=== PATIENT | female | born 1940 | race American Indian/Alaskan Native ===

== ENCOUNTER 2018-06-27 17:58 | Emergency (ER) | payer OTHER, BC ==
--- NOTE | 2018-06-27 18:13 | PDOC ---
Rapid Medical Evaluation Time Seen by Provider: 06/27/18 18:10 Medical Evaluation: 06/27/18 18:10 I have performed a brief in-person evaluation of this patient. The patient presents with a chief complaint of: Head injury s/p fall. While dancing tonight, accidentally got knocked over per pt. C/o mild MCCLENDON. No loc, dizziness, visual changes, n/v. No cp or dizziness prior to fall. H/o HTN, HLD, hypothyroid, s/p surgery for L breast ca remotely Pertinent physical exam findings: well jose female, stable at triage I have ordered the following:CT head The patient will proceed to the ED for further evaluation. 06/27/18 18:14 Discharge Disposition - Diagnosis Head injury Qualifiers: Encounter type: initial encounter Qualified Code(s): S09.90XA - Unspecified injury of head, initial encounter - Referrals - Patient Instructions - Post Discharge Activity
[2018-06-27 18:30] VITALS: BP 164/82; PULSE 67; TEMP 97.8; BMI 19.8
--- NOTE | 2018-06-27 18:40 | PDOC ---
History of Present Illness - General Chief Complaint: Injury Stated Complaint: FALL Time Seen by Provider: 06/27/18 18:10 History Source: Patient - History of Present Illness Initial Comments: 06/27/18 18:48 78 year old female reported that while she was in a dance class she tripped and fell to the left side hit head and left hand. denies pain to left hand full rom. has a hematoma to left parietal area. patient has a history of hypertension. currently on aspirin everyday Past History - Past Medical History Allergies/Adverse Reactions: Allergies Allergy/AdvReac Type Severity Reaction Status Date / Time CARL Inhibitors Allergy Intermediate Itching Verified 06/27/18 18:11 ampicillin Allergy Intermediate Itching Verified 06/27/18 18:11 pneumococcal vaccine Allergy Intermediate Rash Verified 06/27/18 18:11 [From Prevnar 13 (PF)] Home Medications: Ambulatory Orders Unobtainable 06/27/18 COPD: No HTN: Yes Hypercholesterolemia: Yes Thyroid Disease: Yes - Suicide/Smoking/Psychosocial Hx Smoking History: Never smoked Review of Systems - Review of Systems Able to Perform ROS?: Yes Is the patient limited Welsh proficient: No Neurological: Yes: Other (head injury) *Physical Exam - Vital Signs Last Vital Signs Temp Pulse Resp BP Pulse Ox 97.8 F 67 19 164/82 96 06/27/18 18:12 06/27/18 18:12 06/27/18 18:12 06/27/18 18:12 06/27/18 18:12 - Physical Exam General Appearance: Yes: Appropriately Dressed HEENT: positive: Other (hematoma to right parietal area, bruising and surrounding petechiae to left arist and arm) Neurologic: positive: Fully Oriented, Alert, Normal Mood/Affect Moderate Sedation - Procedure Monitoring Vital Signs: Procedure Monitoring Vital Signs Temperature 97.8 F 06/27/18 18:12 Pulse Rate 67 06/27/18 18:12 Respiratory Rate 19 06/27/18 18:12 Blood Pressure 164/82 06/27/18 18:12 O2 Sat by Pulse Oximetry (%) 96 06/27/18 18:12 *DC/Admit/Observation/Transfer Diagnosis at time of Disposition: Head injury Qualifiers: Encounter type: initial encounter Qualified Code(s): S09.90XA - Unspecified injury of head, initial encounter - Discharge Dispostion Disposition: HOME - Referrals Referrals: Domingo Tolbert [Primary Care Provider] - - Patient Instructions Printed Discharge Instructions: Postconcussion Syndrome, DI for Closed Head Injury Additional Instructions: rest and relax as much as possible. you may apply ice to the area follow up with your doctor - Post Discharge Activity
== END 2018-06-27 19:24 | disposition home or self-care (01) ==
LOC: JER 17:58
DX: S00.03XA Contusion of scalp, initial encounter (principal); W18.39XA Other fall on same level, initial encounter; Y93.41 Activity, dancing; Y92.252 Music hall as the place of occurrence of the external cause; Y99.8 Other external cause status; I10 Essential (primary) hypertension; E78.5 Hyperlipidemia, unspecified; E03.9 Hypothyroidism, unspecified; Z85.3 Personal history of malignant neoplasm of breast
CPT/HCPCS: 70450-TC; 99281-25